=== PATIENT | male | born 1980 | race Caucasian/White ===

== ENCOUNTER 2020-08-06 14:35 | Inpatient (IN) ==
[2020-08-06] MEDS ORDERED: VANCOMYCIN HCL 2,000 MG in SODIUM CHLORIDE 0.9% 500 ML IV ONE (16:38)
[2020-08-06] MEDS ORDERED: cefTRIAXone SODIUM 2,000 MG/70 ML BAG IV STA (16:38)
[2020-08-06] MEDS ORDERED: VANCOMYCIN CONSULT ACTIVE PRN (16:38)
--- NOTE | 2020-08-06 16:41 | Emergency Department Note ---
History of Present Illness General Chief complaint: Back Injury/Pain Stated complaint: BACK PAIN DOC REF'D Time Seen by Provider: 08/06/20 16:23 Source: patient History of Present Illness Provider complaint: Mid back pain Onset (ago): month(s) Location: back Pain Consistency: + constant Maximum Pain Intensity: 7 Quality: + other (Tightness) Relieved By: + none Exacerbated By: + movement Associated symptoms: no chest pain, no cough, no fever/chills, no headaches, no nausea/vomiting, no shortness of breath and no weakness This is a 39-year-old male who was seen here yesterday by myself and had blood tests and MRI of the back concerning for osteomyelitis of the spine. He was advised to stay for IV antibiotics after I discussed the case [facility]. He left AMA because he had animals to take care of at home. He returns today for admission. He states the pain is relatively unchanged. He states he thought about it and he thinks the pain has been going on for 2 years and not 2 months. It has gotten worse over the past 2 days. He denies any injury although does remember shoveling snow. He denies any associated fever, chills, chest pain, shortness of breath, abdominal pain, cough or cold symptoms, vomiting or diarrhea. He had a Covid test yesterday while he was here and that was negative. He denies any numbness or weakness in his arms or legs. Home Medications Medication Instructions Recorded Confirmed Type albuterol sulfate 2.5 mg INH Q6H PRN #180 ml 01/09/20 08/06/20 Rx albuterol sulfate 90 mcg/actuation 1 - 2 inh INHALATION Q4 PRN #1 ea 02/22/20 08/06/20 Rx breath activated powder inhaler Allergies Allergy/AdvReac Type Severity Reaction Status Date / Time No Known Allergies Allergy Verified 08/06/20 16:53 Past Med/Surg History Medical History (Updated 08/06/20 @ 16:51 by Talha Uribe MD) Anxiety Asthma inhaler/nebulizer prn Depressive disorder, not elsewhere classified GERD (gastroesophageal reflux disease) Hypertension Hypertriglyceridemia Nephrolithiasis Panic disorder without agoraphobia Surgical History History of lithotripsy History of wisdom tooth extraction Status post medial meniscal repair R knee Family History Mother Diabetes Anxiety Hypertension Father Anxiety Hypertension Myocardial infarction Sister Anxiety Depression Uncle Alcohol abuse Myocardial infarction Grandmother Diabetes Grandfather (Paternal) Myocardial infarction Other No family history of adverse response to anesthesia Denies family history of Ovarian cancer Prostate cancer Breast cancer Colorectal cancer Social History Smoking Status: Current some day smoker Cigarettes Per Day: "some here and there"; Second Hand Exposure: Yes (parents smoked); Hx Alcohol Use: No Hx Substance Use: Yes (smokes marijuana daily) Last Used Substance: Days (ago) Preferred Language: Czech Communication Ability: Effective Visual Impairment: No Limitations Hearing Ability: Normal 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 and A total of 10 systems reviewed and were otherwise negative Physical Exam Vital Signs Vital Signs - 24 hr 08/06/20 14:37 08/06/20 17:00 08/06/20 18:20 Temperature 36.5 C Temperature Source Temporal Artery Scan Pulse Rate 70 Pulse Rate [Finger] 70 85 Respiratory Rate 16 20 16 Respiratory Effort / Characteristics Non-Labored Spontaneous Respiratory Depth Normal Respiratory Pattern Regular Blood Pressure 158/88 H Blood Pressure [Right Arm] 166/96 H 162/85 H Blood Pressure Mean 111 Blood Pressure Mean [Right Arm] 119 110 Blood Pressure Position Sitting Pulse Oximetry 97 97 100 Oxygen Delivery Method Room Air Room Air Sepsis Recent Fever Within 48 Hours No Sepsis New/Unexplained Change in Mental Status N/A Sepsis Action Taken by Nursing No Action Required Constitutional: Vital signs reviewed. Eyes: Pupils are equal round reactive to light. Conjunctiva are noninjected. ENT: Pharynx is clear without erythema or exudate. Mucous membranes are moist. Neck supple without meningeal signs. Respiratory: Clear to auscultation bilaterally. Breath sounds are equal bilaterally. Cardiovascular: Regular rate and rhythm. No rubs or gallops. GI: Soft, nondistended and nontender. Bowel sounds are present. Musculoskeletal: No peripheral edema. Mild midline tenderness to the lower thoracic spine. No step-off or deformity. No rash or ecchymosis. Integumentary: No cyanosis. or jaundice. Neurological: The patient is awake and alert. Normal gait. No focal deficits. Psychiatric: Normal affect. Course Administered Medications Vancomycin HCl 2,000 mg/ (Sodium Chloride) 540 mls @ 200 mls/hr IV NOW ONE Stop: 08/06/20 19:19 Last Admin: 08/06/20 18:14 Dose: 200 mls/hr Documented by: [id number] Discontinued Medications Ceftriaxone Sodium (Rocephin) 2,000 mg in 70 mls @ 140 mls/hr IV NOW STA Stop: 08/06/20 17:07 Last Infusion: 08/06/20 17:27 Dose: 0 mls/hr Documented by: [id number] Admin: 08/06/20 16:57 Dose: 140 mls/hr Documented by: [id number] Medical Decision Making Differential Diagnosis Vertebral osteomyelitis, bacteremia, discitis, MRSA, immunodeficiency Medical Records Attestation: I reviewed the patient's medical records. I did perform a limited focused review of portions of the patient's old chart on the electronic medical record. The patient yesterday for the same complaint. MRI of the thoracic spine was concerning for significant inflammation at the T8 vertebrae with possible inflammation versus infection. His white blood cell count, D-dimer, ESR and CRP were elevated. Blood cultures have shown no growth so far. Covid testing was negative. Home Medications Current Medication List: was personally reviewed by me Laboratory Data Attestation: I reviewed the patient's lab results. Result diagrams: 08/06/20 16:49 08/06/20 16:49 Lab Results 08/06/20 08/06/20 Range/Units 16:49 16:49 WBC 11.50 H (4.8-10.8) K/uL RBC 4.56 L (4.7-6.1) M/uL Hgb 14.8 (14.0-18.0) g/dL Hct 42.0 (42-52) % MCV 92.1 (80-100) fL MCH 32.5 (25-34) pg MCHC 35.2 (32-36) g/dL RDW Std Deviation 44.2 (36.4-46.3) fL RDW Coeff of Analy 13.2 (11.5-14.5) % Plt Count 297 (130-400) K/uL MPV 10.3 (7.4-10.4) fL Immature Gran % (Auto) 0.2 % Neut % (Auto) 74.8 % Lymph % (Auto) 18.7 % [place] % (Auto) 4.3 % Eos % (Auto) 1.7 % Baso % (Auto) 0.3 % Neut # (Auto) 8.62 H (1.4-6.5) K/uL Lymph # (Auto) 2.15 (1.2-3.4) K/uL [place] # (Auto) 0.49 (0.11-0.59) K/uL Eos # (Auto) 0.19 (0-0.5) K/uL Baso # (Auto) 0.03 (0-0.2) K/uL Immature Gran # (Auto) 0.02 (0.00-0.02) K/uL Sodium 138 (136-145) mmol/L Potassium 3.5 (3.5-5.1) mmol/L Chloride 105 (98-107) mmol/L Carbon Dioxide 26 (21-32) mmol/L Anion Gap 7.0 (3-11) BUN 13 (7-18) mg/dl Creatinine 1.01 (0.6-1.4) mg/dl Est Cr Clr Drug Dosing 105.9 ml/min Est GFR ( Amer) 106.6 Est GFR (Non-Af Amer) 92.0 BUN/Creatinine Ratio 13.1 (10-20) Glucose 131 H (70-99) mg/dl Calcium 9.2 (8.5-10.1) mg/dl C-Reactive Protein 1.56 H (0-0.29) mg/dl MDM Narrative I did evaluate the patient as noted above. He has no significant change in his symptoms. I again had a discussion with him that based on his MRI and blood work Dr. Barahona and I were very concerned for possible vertebral osteomyelitis. I did explain to him that we could not definitively say that it was osteomy elitis but based on the testing we have so far it is of high concern and needs to be treated as such as the consequences of not treating him would be very severe. I did explain that what they would give him IV antibiotics and likely do an echocardiogram to look for endocarditis. He will likely have other testing as well. He was agreeable to admission. IV access was established. I did order 2 sets of blood cultures. I did treat him with vancomycin and ceftriaxone IV. I did order and review the patient's blood work as noted in the electronic medical record. White blood cell count is 11.5. Electrolytes are unremarkable. CRP is elevated at 1.56. While the slight decrease in inflammato ry markers is reassuring they do not rule out osteomyelitis at this time. The patient had a negative COVID-19 test yesterday. I did discuss case with the hospitalist and case mgr. Impression & Plan Osteomyelitis of thoracic vertebra Discharge Plan Visit Data Chief Complaint: Back Injury/Pain Stated Complaint: BACK PAIN DOC REF'D ED Provider: Talha Uribe Discharge Problem: Osteomyelitis of thoracic vertebra Patient Disposition: Being Evaluated by Hospitalist Forms Stand Alone Forms: My [facility] Prescriptions Prescriptions: No Action albuterol sulfate 2.5 mg /3 mL (0.083 %) solution for nebulization 2.5 mg INH Q6H PRN (Reason: shortness of breath or wheezing) Qty: 180 RF: 2 albuterol sulfate 90 mcg/actuation aerosol powdr breath activated 1 - 2 inh inhalation Q4 PRN (Reason: Shortness Of Breath) Qty: 1 RF: 4 Referrals Referrals: Kamala Morgan DO [Primary Care Provider] -
[2020-08-06 16:59] LABS: Basophils # (auto) 0.03 K/uL (0-0.2); Basophils % (auto) 0.3 %; Eosinophils # (auto) 0.19 K/uL (0-0.5); Eosinophils % (auto) 1.7 %; Hemoglobin 14.8 g/dL (14.0-18.0); Immature Granulocytes # (auto) 0.02 K/uL (0.00-0.02); Immature Granulocytes % (auto) 0.2 %; Lymphocytes # (auto) 2.15 K/uL (1.2-3.4); Lymphocytes % (auto) 18.7 %; Mean Corpuscular Hemoglobin 32.5 pg (25-34); Mean Corpuscular Hgb Conc 35.2 g/dL (32-36); Mean Corpuscular Volume 92.1 fL (80-100); Mean Platelet Volume 10.3 fL (7.4-10.4); Monocytes # (auto) 0.49 K/uL (0.11-0.59); Monocytes % (auto) 4.3 %; Neutrophils # (auto) 8.62 K/uL (1.4-6.5); Neutrophils % (auto) 74.8 %; Platelet Count 297 K/uL (130-400); RDW Coefficient of Variation 13.2 % (11.5-14.5); RDW Standard Deviation 44.2 fL (36.4-46.3); Red Blood Count 4.56 M/uL (4.7-6.1)
[2020-08-06 17:15] LABS: BUN Creatinine Ratio 13.1 (10-20); C Reactive Protein 1.56 mg/dl (0-0.29); Calcium 9.2 mg/dl (8.5-10.1); Creatinine Clr Calc Pharmacy 105.9 ml/min; Est GFR (African American) 106.6; Potassium 3.5 mmol/L (3.5-5.1)
--- NOTE | 2020-08-06 18:18 | History & Physical Report ---
Date of Service August 06, 2020 Assessment & Plan (1) Acute osteomyelitis of thoracic spine: 39 year old male with PMH asthma presents with concerns of back pain found to have concern for thoracic spine osteomyelitis on MRI imaging. Thoracic Spine Osteomyelitis -admit to med surg -Thoracic Spine MRI: Right lateral bridging osteophytes at the T8-T9 level with moderate adjacent right paravertebral edema and enhancement and a small right pleural effusion. No abscess. Mild edema within the adjacent T8 and T9 vertebral bodies. This suggests nonspecific inflammation. This may represent degenerative or inflammatory spondylitis. An infectious process is within the differential. -Empiric Treatment with IV Vanc and Rocephin. Will need IV antibiotics for minimum 6 weeks -Blood cultures ordered. -Consult orthopedic and ID FEN/GI: Regular Diet DVT Prophylaxis: Lovenox SQ CODE STATUS: Full Code Dispo: Med Surg History of Present Illness Chief Complaint: back pain Primary Care Provider: Kamala Morgan, DO 39 yo M with PMH asthma presents with concerns of back pain. Pt was seen in our ED yesterday for same complaint. 2 year history of intermittent right-sided back pain rating into his flank but not his abdomen. CT abd pelvis yesterday showed "nephrolithiasis but no ureterolithiasis or hydronephrosis. There is a trace right pleural effusion with right paravertebral infiltration centered at T8-T9. This is concerning for an infectious process versus of degenerative process." Subsequent thoracic spine MRI showed "demonstrated right paracentral disc protrusion at T8 and T7. The ventral aspect of the cord was indented but there was no thoracic cord signal abnormality. He has moderate adjacent right pa ravertebral edema at T8 and T9 with a small right pleural effusion. No abscess was noted. There was mild edema within the adjacent T8 and T9 vertebral bodies." This showed concern for discitis or osteomyelitis. Case was discussed with Dr. Barahona orthopedic spine surgery who recommended plan to hospitalize the patient for IV antibiotics. Pt stated that he could not stay in hospital due to concerns of taking care of his dog at home and chose to leave AGAINST MEDICAL ADVICE. Pt chose to re-present today for ongoing treatment. Denies any associated fever, chills, sweats, weight loss, numbness/tingling or any red flag sxs of bowel/bladder incontinence or anesthesia. Pt with no other acute concerns or complaints. Pertinent Labs: WBC 11.5. Electrolytes are unremarkable. CRP 1.56. Thoracic Spine MRI: Right lateral bridging osteophytes at the T8-T9 level with moderate adjacent right paravertebral edema and enhancement and a small right pleural effusion. No abscess. Mild edema within the adjacent T8 and T9 vertebral bodies. This suggests nonspecific inflammation. This may represent degenerative or inflammatory spondylitis. An infectious process is within the differential. 7 x 5 mm central/right paracentral disc protrusion at T7-T8 that indents the ventral aspect of the cord. No thoracic cord signal abnormality. No additional disc herniations. Otherwise, patent central canal and neural foramen. ER Course: IV Ceftriaxone, IV Vancomycin Allergies Allergy/AdvReac Type Severity Reaction Status Date / Time No Known Allergies Allergy Verified 08/06/20 16:53 Home Medications Medication Instructions Recorded Confirmed Type albuterol sulfate 2.5 mg INH Q6H PRN #180 ml 01/09/20 08/06/20 Rx albuterol sulfate 90 mcg/actuation 1 - 2 inh INHALATION Q4 PRN #1 ea 02/22/20 08/06/20 Rx breath activated powder inhaler Past Med/Surg History Medical History (Updated 08/06/20 @ 20:05 by Erlinda Leyva RN) Anxiety Arthritis Asthma inhaler/nebulizer prn Depressive disorder, not elsewhere classified GERD (gastroesophageal reflux disease) History of migraine Hypertension Hypertriglyceridemia Kidney stones Nephrolithiasis Panic disorder without agoraphobia Surgical History History of lithotripsy History of wisdom tooth extraction Status post medial meniscal repair R knee Family History Mother Diabetes Anxiety Hypertension Father Anxiety Hypertension Myocardial infarction Sister Anxiety Depression Uncle Alcohol abuse Myocardial infarction Grandmother Diabetes Grandfather (Paternal) Myocardial infarction Other No family history of adverse response to anesthesia Denies family history of Ovarian cancer Prostate cancer Breast cancer Colorectal cancer Social History Smoking Status: Current some day smoker Cigarettes Per Day: "some here and there"; Second Hand Exposure: Yes; Do You Dip or Chew Tobacco: Yes; Tobacco Cessation Education Requested by Patient: No Hx Alcohol Use: Yes Alcohol type: other Hx Substance Use: Yes Last Used Substance: Days (ago) Last Used Substance Other:: "last night" Preferred Language: German Communication Ability: Effective Visual Impairment: No Limitations Hearing Ability: Normal Negative Cutter Required: No Beliefs That Will Affect Care: None marital status: Single Current Living Situation: Alone current occupational status: employed 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 Other Information That Helps Us Care for You: No Feels Safe at Home: Yes Safety Concerns: Feels Safe At This Time Childhood Exposure to Second-Hand Smoke: Yes Diet Comment: regular caffeine: No during the past year weight has: remained stable Dental Care, Regularly: Yes Physical Activity Frequency: 1-2 Times per Week Physical Activity Frequency Comment: weight lifting Seatbelt Use: always Sunscreen Use: No Assistive Devices: None Review of Systems Review of Systems: All systems reviewed & are unremarkable except as noted in HPI & below Physical Exam Constitutional: WD/WN, vitals as above Eyes: PERRL, conjunctivae normal, anicteric sclerae ENMT: external ear and nose normal, oropharynx normal Respiratory: normal respiratory effort, lungs clear to auscultation Cardiovascular: RRR, no murmur, no edema Gastrointestinal (Abdomen): normal bowel sounds, soft, nontender, no hepatosplenomegaly Musculoskeletal: Mild midline tenderness to the lower thoracic spine Skin: no rashes, warm and dry Psychiatric: A+Ox3, euthymic affect Results & Data Results & Data ([facility]) Vital Signs (Past 12 Hours) Vital Signs Temp Pulse Pulse Resp BP BP Pulse Ox 08/06/20 17:00 70 20 166/96 H 97 08/06/20 14:37 36.5 C 70 16 158/88 H 97 Laboratory Results Laboratory Results - last 24 hr 08/06/20 08/06/20 16:49 16:49 WBC 11.50 H RBC 4.56 L Hgb 14.8 Hct 42.0 MCV 92.1 MCH 32.5 MCHC 35.2 RDW Std Deviation 44.2 RDW Coeff of Analy 13.2 Plt Count 297 MPV 10.3 Immature Gran % (Auto) 0.2 Neut % (Auto) 74.8 Lymph % (Auto) 18.7 Carbon % (Auto) 4.3 Eos % (Auto) 1.7 Baso % (Auto) 0.3 Neut # (Auto) 8.62 H Lymph # (Auto) 2.15 [place] # (Auto) 0.49 Eos # (Auto) 0.19 Baso # (Auto) 0.03 Immature Gran # (Auto) 0.02 Sodium 138 Potassium 3.5 Chloride 105 Carbon Dioxide 26 Anion Gap 7.0 BUN 13 Creatinine 1.01 Est Cr Clr Drug Dosing 105.9 Est GFR ( Amer) 106.6 Est GFR (Non-Af Amer) 92.0 BUN/Creatinine Ratio 13.1 Glucose 131 H Calcium 9.2 C-Reactive Protein 1.56 H Medications Administered Current Inpatient Medications Vancomycin HCl 2,000 mg/ (Sodium Chloride) 540 mls @ 200 mls/hr IV NOW ONE Stop: 08/06/20 19:19 Last Admin: 08/06/20 18:14 Dose: 200 mls/hr Documented by: Miscellaneous Information (Vancomycin Consult Active) 1 ea N/A UD PRN PRN Reason: Consult Stop: 09/05/20 16:37 Code Status & VTE Plan Code Status FULL Supervising Physician Co-Signing Physician Notes Resident Physician Supervision Note: I independently interviewed and examined the patient and verified the ansari history and physical, reviewed labs and image studies, discussed the case with the resident Dr. Brothers and agree with the findings and care plan. Resident Activity Tracking Resident Involvement: Resident Care Provided Care Provided: Adult Hospital Medicine
[2020-08-06] MEDS ORDERED: ACETAMINOPHEN 325 MG TAB PO PRN (19:45)
[2020-08-06] MEDS ORDERED: ALUMINUM/MAGNESIUM SUSP 30 ML UDC PO PRN (19:45)
[2020-08-06] MEDS ORDERED: ONDANSETRON INJ 2 MG/ML 2 ML VIAL IV PRN (19:45)
[2020-08-06] MEDS ORDERED: MoRPHine SULFATE 2 MG/ML CARP IV PRN (19:45)
[2020-08-07] MEDS ORDERED: VANCOMYCIN HCL 1,250 MG in SODIUM CHLORIDE 0.9% 250 ML IV SCH (02:00)
[2020-08-07 07:26] LABS: Basophils # (auto) 0.03 K/uL (0-0.2); Basophils % (auto) 0.3 %; Eosinophils % (auto) 3.4 %; Hematocrit (blood only) 41.6 % (42-52); Hemoglobin 14.4 g/dL (14.0-18.0); Immature Granulocytes # (auto) 0.01 K/uL (0.00-0.02); Immature Granulocytes % (auto) 0.1 %; Lymphocytes # (auto) 1.96 K/uL (1.2-3.4); Lymphocytes % (auto) 22.5 %; Mean Corpuscular Hemoglobin 32.4 pg (25-34); Mean Corpuscular Hgb Conc 34.6 g/dL (32-36); Mean Corpuscular Volume 93.5 fL (80-100); Mean Platelet Volume 10.6 fL (7.4-10.4); Monocytes # (auto) 0.68 K/uL (0.11-0.59); Monocytes % (auto) 7.8 %; Neutrophils # (auto) 5.72 K/uL (1.4-6.5); Neutrophils % (auto) 65.9 %; Platelet Count 280 K/uL (130-400); RDW Coefficient of Variation 13.3 % (11.5-14.5); RDW Standard Deviation 45.6 fL (36.4-46.3); Red Blood Count 4.45 M/uL (4.7-6.1)
[2020-08-07 08:00] LABS: BUN Creatinine Ratio 19.4 (10-20); Calcium 9.2 mg/dl (8.5-10.1); Creatinine Clr Calc Pharmacy 141.6 ml/min; Est GFR (African American) 131.3; Est GFR (Non-African American) 113.3
[2020-08-07] MEDS: ENOXAPARIN INJ 40 MG/0.4 ML SYR SQ SCH (08:53)
--- NOTE | 2020-08-07 09:09 | Pharmacy Report ---
Pharmacy Abx Initial Consult - Date of Service August 07, 2020 - Pharmacy Dosing Scope Date of Consult: 08/06/20 Consultation requested by: Dr. Brothers Pharmacy is consulted to initiate vancomycin IV dosing therapy, order appropriate labs and adjust drug dose/frequency. - Subjective The patient is a 39 year old M admitted on 08/06/20 17:23. - Objective Height: 5 ft 8 in Weight: 93 kg Vital Signs (Past 12hrs): Vital Signs Temp Pulse Resp BP Pulse Ox 08/07/20 08:35 36.6 C 49 L 15 138/83 96 08/06/20 22:57 36.9 C 60 16 145/79 H 96 Lab Results (24hrs): Laboratory Tests (24 Hours) 08/07/20 08/07/20 08/06/20 06:31 06:31 16:49 WBC 8.70 11.50 H Neut # (Auto) 5.72 8.62 H Creatinine 0.76 Est Cr Clr Drug Dosing 141.6 C-Reactive Protein 08/06/20 16:49 WBC Neut # (Auto) Creatinine 1.01 Est Cr Clr Drug Dosing 105.9 C-Reactive Protein 1.56 H Micro Results: 08/06/20 16:49 Aerobic Blood Culture - Pending Blood Anaerobic Blood Culture - Pending 08/06/20 16:47 Aerobic Blood Culture - Pending Blood Anaerobic Blood Culture - Pending - Assessment & Plan Assessment 39 year old M ordered empiric vancomycin and ceftriaxone for treatment of possible thoracic spine osteomyelitis. Thoracic spine MRI from 08/05/20 revealed findings suggestive of nonspecific inflammation (infectious process within differential). Mild leukocytosis on presentation (WBC: 11.5 K, now 8.7 K today), SCr changed from 1.01 mg/dL yesterday -> 0.76 mg/dL today. CRP elevated at 1.56 mg/dL (inflammation vs. infection?) Blood cultures x 2 from 08/05 and 08/06 are ordered, cultures from 08/05 show no growth at 24 hours. Plan Vancomycin IV * Loading dose: 2000 mg (21 mg/kg) * Originally ordered a maintenance dose of 1250 mg IV (13 mg/kg) every 8 hours * Will increase to 1500 mg IV (16 mg/kg) q8h given change in SCr overnight and potential osteomyelitis * Goal trough level for osteomyelitis : 15 to 20 mcg/mL * Trough level ordered for 08/08/20 Ceftriaxone IV * 2 g IV q24h - appropriate at this time Pharmacy will continue to follow and will adjust dose/frequency as necessary. Thank you.
[2020-08-07] MEDS: VANCOMYCIN HCL 1,500 MG in SODIUM CHLORIDE 0.9% 500 ML IV SCH ×2 (09:25→17:15)
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
--- NOTE | 2020-08-07 14:06 | Orthopedic Consultation ---
Date of Consultation August 07, 2020 Assessment & Plan (1) Acute osteomyelitis of thoracic spine: At this time is no indication for any surgical intervention. He may very well have the early onset of discitis osteomyelitis versus edema secondary to repetitive trauma bending lifting and twisting which would be a component of his work. This also may have created a nidus for infection. This point he is improving. Again no need for any surgical invention at this time. Present on Admission?: Yes History of Present Illness Reason for Consultation: Thoracic back pain Attending Physician: Marissa Thao MD History of Present Illness This is a 39-year-old male presents with chronic persistent back pain in the midthoracic region. He states it is on the right parascapular region. He states been present for several months. He is a very physical individual. 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 He denies any specific trauma fall or event but does describe excessive work over the past several months. He denies any radicular component to this pain around his rib cage. He denies any nausea vomiting. The pain does not awaken him from sleep. Allergies Allergy/AdvReac Type Severity Reaction Status Date / Time No Known Allergies Allergy Verified 08/06/20 16:53 Home Medications Medication Instructions Recorded Confirmed Type albuterol sulfate 2.5 mg INH Q6H PRN #180 ml 01/09/20 08/06/20 Rx albuterol sulfate 90 mcg/actuation 1 - 2 inh INHALATION Q4 PRN #1 ea 02/22/20 08/06/20 Rx breath activated powder inhaler Patient History Medical History (Updated 08/06/20 @ 20:05 by Erlinda Leyva RN) Anxiety Arthritis Asthma inhaler/nebulizer prn Depressive disorder, not elsewhere classified GERD (gastroesophageal reflux disease) History of migraine Hypertension Hypertriglyceridemia Kidney stones Nephrolithiasis Panic disorder without agoraphobia Surgical History History of lithotripsy History of wisdom tooth extraction Status post medial meniscal repair R knee Family History Mother Diabetes Anxiety Hypertension Father Anxiety Hypertension Myocardial infarction Sister Anxiety Depression Uncle Alcohol abuse Myocardial infarction Grandmother Diabetes Grandfather (Paternal) Myocardial infarction Other No family history of adverse response to anesthesia Denies family history of Ovarian cancer Prostate cancer Breast cancer Colorectal cancer Social History Smoking Status: Current some day smoker Cigarettes Per Day: "some here and there"; Second Hand Exposure: Yes; Do You Dip or Chew Tobacco: Yes; Tobacco Cessation Education Requested by Patient: No Hx Alcohol Use: Yes Alcohol type: other Hx Substance Use: Yes Last Used Substance: Days (ago) Last Used Substance Othe r:: "last night" Preferred Language: Tajik Communication Ability: Effective Visual Impairment: No Limitations Hearing Ability: Normal Orange Peel Operator Required: No Beliefs That Will Affect Care: None marital status: Single Current Living Situation: Alone current occupational status: employed 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 I am unable to palpate any severe discomfort to the thoracolumbar spine. He has no pain to percussion. He has some thickness tenderness palpation of the paravertebral musculature on the right periscapular region. Is neurologically intact bilateral extremities. Results & Data ([facility]) Vital Signs (Past 12 Hours) Vital Signs Temp Pulse Resp BP Pulse Ox 08/07/20 08:35 36.6 C 49 L 15 138/83 96
[2020-08-07] MEDS: cefTRIAXone SODIUM 2,000 MG in DEXTROSE 5% 50 ML IV SCH (16:37)
[2020-08-08] MEDS: VANCOMYCIN HCL 1,500 MG in SODIUM CHLORIDE 0.9% 500 ML IV SCH ×2 (02:00→10:29)
[2020-08-08 08:30] LABS: Creatinine Clr Calc Pharmacy 126.8 ml/min; Est GFR (African American) 125.2
[2020-08-08] MEDS: cefTRIAXone SODIUM 2,000 MG in DEXTROSE 5% 50 ML IV SCH (09:11)
[2020-08-08] MEDS: ENOXAPARIN INJ 40 MG/0.4 ML SYR SQ SCH (09:16)
[2020-08-08] MEDS ORDERED: VANCOMYCIN TROUGH ONE ×2 (09:30)
--- NOTE | 2020-08-08 10:52 | Pharmacy Report ---
Pharmacy Abx Dose Short Note - Date of Service August 08, 2020 - Assessment & Plan Assessment * 40 year old M receiving VANCOMYCIN + CEFTRIAXONE for treatment of possible acute thoracic spine osteomyelitis/discitis. Pharmacy has been consulted to dose vancomycin. * Day # 3 of antimicrobial therapy * 4/5 MRI read as non-specific inflammation/edema at T8, T9 (degenerative dz vs inflammatory spondylitis vs infxn) * No surgical intervention is planned at this time * Mild leukocytosis present on admission has resolved, no growth noted to date in BLCX's, patient has remained afebrile * Renal fxn stable Plan Vancomycin * Trough level of 15.3 mcg/mL is therapeutic. Prior doses hung at the appropriate times and level was drawn at the appropriate time. * Continue dose of 1500 mg IV every 8 hours * Goal trough level for discitis / osteomyelitis : 15 to 20 mcg/mL * Plan to repeat trough level in 24-48 hrs to r/o drug accumulation Pharmacy will continue to follow and will adjust dose/frequency as necessary. Thank you.
--- NOTE | 2020-08-08 19:50 | Discharge Summary ---
Date of Service August 08, 2020 Admission HPI Per Admitting Provider 39 yo M with PMH asthma presents with concerns of back pain. Pt was seen in our ED yesterday for same complaint. 2 year history of intermittent right-sided back pain rating into his flank but not his abdomen. CT abd pelvis yesterday showed "nephrolithiasis but no ureterolithiasis or hydronephrosis. There is a trace right pleural effusion with right paravertebral infiltration centered at T8-T9. This is concerning for an infectious process versus of degenerative process." Subsequent thoracic spine MRI showed "demonstrated right paracentral disc protrusion at T8 and T7. The ventral aspect of the cord was indented but there was no thoracic cord signal abnormality. He has moderate adjacent right paravertebral edema at T8 and T9 with a small right pleural effusion. No abscess was noted. There was mild edema within the adjacent T8 and T9 vertebral bodies." This showed concern for discitis or osteomyelitis. Case was discussed with Dr. Barahona orthopedic spine surgery who recommended plan to hospitalize the patient for IV antibiotics. Pt stated that he could not stay in hospital due to concerns of taking care of his dog at home and chose to leave AGAINST MEDICAL ADVICE. Pt chose to re-present today for ongoing treatment. Denies any associated fever, chills, sweats, weight loss, numbness/tingling or any red flag sxs of bowel/bladder incontinence or anesthesia. Pt with no other acute concerns or complaints. Pertinent Labs: WBC 11.5. Electrolytes are unremarkable. CRP 1.56. Thoracic Spine MRI: Right lateral bridging osteophytes at the T8-T9 level with moderate adjacent right paravertebral edema and enhancement and a small right pleural effusion. No abscess. Mild edema within the adjacent T8 and T9 vertebral bodies. This suggests nonspecific inflammation. This may represent degenerative or inflammatory spondylitis. An infectious process is within the differential. 7 x 5 mm central/right paracentral disc protrusion at T7-T8 that indents the ventral aspect of the cord. No thoracic cord signal abnormality. No additional disc herniations. Otherwise, patent central canal and neural foramen. ER Course: IV Ceftriaxone, IV Vancomycin Admission Exam Per Admitting Provider Constitutional: WD/WN, vitals as above Eyes: PERRL, conjunctivae normal, anicteric sclerae ENMT: external ear and nose normal, oropharynx normal Respiratory: normal respiratory effort, lungs clear to auscultation Cardiovascular: RRR, no murmur, no edema Gastrointestinal (Abdomen): normal bowel sounds, soft, nontender, no hepatosplenomegaly Musculoskeletal: Mild midline tenderness to the lower thoracic spine Skin: no rashes, warm and dry Psychiatric: A+Ox3, euthymic affect Principal Diagnosis Vertebral osteomyelitis Discharge Exam Well-appearing, no acute distress, comfortable NCAT, MMM CV: regular rhythm, no murmur appreciated Resp: CTABL Abd: soft, nontender, nondistended MSK: tenderness of lower right thoracic vertebrae, nontender elsewhere, no flank tenderness Neuro: LE sensation of legs and thighs intact and equal bilaterally, sensation of back intact and equal bilaterally, gait unremarkable without asymmetry or disequilibrium Discharge Data Allergies Allergy/AdvReac Type Severity Reaction Status Date / Time No Known Allergies Allergy Verified 08/09/20 09:15 Consultations 08/06/20 17:37 ED Decision to Admit Stat 08/06/20 19:45 Consult Infectious Diseases Stat Consult Orthopedic Surgery Routine Hospital Course (1) Acute osteomyelitis of thoracic spine: 39yo male with asthma presenting with back pain, elevated inflammatory markers, and imaging concerning for thoracic spine osteomyelitis. Thoracic spine osteomyelitis Patient was admitted with back pain and elevated CRP after imaging revealed right lateral bridging osteophytes at T8-T9 with moderate adjacent right paravertebral edema and enhancement, along with a small right pleural effusion, without abscess formation. Blood cultures were drawn before empiric IV antibiotic treatment was initiated. Orthopedic surgery consult felt findings were consistent with vertebral osteomyelitis, and did not require surgery at this time. Infectious disease agreed with the diagnosis, adding recommendations for eight weeks of IV antibiotic treatment. Patient declined bone biopsy. Pharmacy was consulted and noted that antibiotic selection for empiric therapy included ceftriaxone in addition to vancomycin or daptomycin. Pharmacy added that patient's age, renal function, and in-hospital vancomycin trough meant that vancomycin therapy would require q8hr dosing, and so daptomycin (with its once- daily dosing) was chosen over vancomycin. Patient was discharged on hospital day 1 with close PCP followup arranged, in addition to arrangements in place for patient to receive once-daily IV ceftriaxone and daptomycin treatment for eight weeks through [facility] Medical [facility]. Right pleural effusion An incidental finding of right pleural effusion was seen on MRI at the same level of the vertebral findings described above. Patient denied CP or SOB, lungs were CTABL on exam, and patient maintained adequate oxygenation on room air for the entirety of his hospital stay. The case was discussed with radiology, who felt the effusion was very likely related to the spine pathology. No intervention was felt to be indicated. Close PCP monitoring for development of respiratory symptoms was arranged. (2) Nephrolithiasis: (3) Asthma: (4) Small pleural effusion: Total Time Total Time Spent Total Time Spent (In Minutes): see attending documentation Discharge Plan Discharge Items Patient Disposition: Home - Self-Care Reason For Visit: OSTEO Discharge Diagnosis: Vertebral osteomyelitis Activity: Resume your previous activity Non-emergency contact: Primary Care Provider Call non-emergency contact if: you have any medication questions, your pain is worsening and you have a fever Follow-up/Referrals: Kamala Morgan, [Primary Care Provider] - 08/14/20 3:20 pm (Suyapa Briseno) Diet: Regular Addtl Attending Provider Instructions: You were admitted to the hospital for vertebral osteomyelitis (an infection in the spine). You were treated with intravenous antibiotics. It is critically important that your intravenous antibiotic therapy is continued for about 8 w eeks. Arrangements have been made for you to receive these antibiotics daily at the Medical Treatment Unit ([facility]U) of [facility]. Your case assembler provided you with instructions on receiving treatment tomorrow at 9am, and each day afterward. The MTU can be reached at [phone]. A discharge summary will be sent to your primary care physician to ensure continuity of care. Please bring this discharge summary with you to your next office appointment so that your provider can review it at that time. Follow-up appointments: As noted above, arrangements have been made for you to receive antibiotics treatment at the Medical Treatment Unit ([facility]U) of [facility]. Your first treatment is 08/09 at 9am. The MTU can be reached at [phone]. You have an appointment on Wednesday, 08/23 at 10:30am with Dr. Scooter Cerna at the [facility] clinic on the second floor of [address] [place] [address] (right across the parking lot from [facility]) in [place]. If you are unable to make this appointment or need to reschedule, please let us know - we will try to be as flexible as possible. The clinic phone number is [phone]. Keep all your follow-up appointments as already scheduled. If you cannot make an appointment, notify your provider. Medications: Your medication list has been reviewed and reconciled upon discharge to ensure accuracy and continuity of care. You are provided with a list of all your current medications at this time. We have not prescribed any new medications for you to miner pick from the pharmacy. The only new prescriptions we have for you are the ones you will receive at the [facility], as noted above. Please take all of your medications exactly as prescribed. Tell your primary care provider if you cannot afford your medications. Call your primary care provider if you are having any side effects or any other problems. Call your primary care provider before taking any over the counter medications or supplements, including herbals and vitamins, because some of these may interact with your current medications and/or make your symptoms worse. CONTACT YOUR PRIMARY CARE PROVIDER if you experience any of the following: Persistent back pain Shortness of breath or difficulty breathing Inability to take medications or follow treatment plan CALL 911 OR GO TO THE EMERGENCY DEPARTMENT if you experience any of the following: Fever, chills, sudden sweating not related to physical activity, or confusion Inability to control your bowels, or inability to control urination Worsening back pain Numbness, tingling, or weakness of your arms or legs Numbness, tingling, or weakness of your hips, buttocks, or groin Difficulty with walking, or difficulty maintaining your balance while walking Sudden lightheadedness, dizziness Sudden, severe shortness of breath or difficulty breathing Severe chest pain that radiates to your arm or jaw Thank you for allowing us to participate in your care. Pending Studies at Discharge: No Stand-Alone Forms: My [facility] Medications and DC Order Prescriptions: Continued albuterol sulfate 2.5 mg /3 mL (0.083 %) solution for nebulization 2.5 mg INH Q6H PRN (Reason: shortness of breath or wheezing) Qty: 180 RF: 2 albuterol sulfate 90 mcg/actuation aerosol powdr breath activated 1 - 2 inh inhalation Q4 PRN (Reason: Shortness Of Breath) Qty: 1 RF: 4 Discharge Orders: Discharge Order (Routine); Ordered 08/08/20 Ordered By: Scooter Cerna Admission Data Admit Date/Time: 08/06/20 17:23 Attending Provider: Marissa Thao Admit Provider: Johny Brothers Primary Care Provider: Kamala Morgan Other Providers: Nestor Ayala ; Bahman Jeffers ; Shelly Tang ; Isra Gipson I. ; Neville Morrison II ; Kristine Sauer ; Jonh Toro ; Hitesh Barahona Other Interventions: Discharge Summary Assessment (RN) Last Done: 08/08/20 16:40 Supervising Physician Co-Signing Physician Notes Resident Physician Supervision Note: I independently interviewed and examined the patient and verified the ansari history and physical, reviewed labs and image studies, discussed the case with the resident Dr. Sahni and agree with the findings and care plan. Resident Activity Tracking Resident Involvement: Resident Care Provided Care Provided: Adult Hospital Medicine
[2020-08-09] MEDS ORDERED: VANCOMYCIN TROUGH ONE (09:30)
== END 2020-08-08 16:59 | disposition home or self-care (01) | DRG 540 ==
LOC: ED 14:35 → 3W 17:23